=== PATIENT | male | born 1945 | race Native Hawaiian/Other Pacific Islander ===

== ENCOUNTER 2016-11-07 15:05 | Observation (INO) | payer MEDICARE, MEDICAID ==
--- NOTE | 2016-11-07 15:34 | C.PDOC ---
History Of Present Illness 71 y/o male, history of DM and HTN, sent in by PMD today for bilateral lower extremity swelling. Pt reports swelling has worsened over the last week. Also reports SOB on exertion. Denies chest pain, fever, chills, nausea, vomiting, diarrhea, or other associated symptoms. PMD: Dr. Glynn Time Seen by Provider: 11/07/16 15:23 Chief Complaint (Nursing): Shortness Of Breath History Per: Patient History/Exam Limitations: no limitations Onset/Duration Of Symptoms: Days Current Symptoms Are (Timing): Worse Exacerbating Factor(s): Exertion Associated Symptoms: Ankle/Leg Swelling. denies: Fever, Chills, Chest Pain, Bloody Cough, Productive Cough, Dizziness, Light-headedness, Anxiety Recent travel outside of the [place]: No Past Medical History Reviewed: Historical Data, Nursing Documentation, Vital Signs Vital Signs: Last Vital Signs Temp 97.9 F 11/07/16 15:16 Pulse 83 11/07/16 15:16 Resp 20 11/07/16 15:39 BP 144/86 11/07/16 15:16 Pulse Ox 100 11/07/16 16:58 - Medical History PMH: Asthma, HTN Family History: States: Unknown Family Hx - Social History Hx Alcohol Use: No Hx Substance Use: No - Immunization History Hx Tetanus Toxoid Vaccination: No Hx Influenza Vaccination: Yes Hx Pneumococcal Vaccination: Yes Review Of Systems Except As Marked, All Systems Reviewed And Found Negative. Constitutional: Negative for: Fever, Chills Cardiovascular: Positive for: Edema (bilateral lower extremities). Negative for : Chest Pain, Palpitations Respiratory: Positive for: SOB with Excertion. Negative for: Cough Gastrointestinal: Negative for: Nausea, Vomiting, Abdominal Pain Skin: Negative for: Rash Neurological: Negative for: Headache, Dizziness Physical Exam - Physical Exam Appears: Non-toxic, No Acute Distress Skin: Normal Color, Warm, Dry, No Rash Head: Atraumatic, Normacephalic Oral Mucosa: Moist Neck: Supple Chest: Symmetrical, Other (pacemaker L chest wall) Cardiovascular: Rhythm Regular Respiratory: Rales (scant, bilateral bases), No Rhonchi, No Stridor, No Wheezing Gastrointestinal/Abdominal: Soft, No Tenderness, No Guarding, No Rebound Extremity: Normal ROM, Pedal Edema (2+ pitting edema bilaterally extending up to the knees), No Calf Tenderness, Capillary Refill (< 2 sec.) Neurological/Psych: Oriented x3, Normal Speech, Normal Cognition ED Course And Treatment - Laboratory Results Result Diagrams: 11/07/16 15:51 11/07/16 15:51 O2 Sat by Pulse Oximetry: 100 (RA) Pulse Ox Interpretation: Normal Medical Decision Making Medical Decision Making: Plan: * EKG, CxR, bloodwork * Reassess Progress: EKG shows atrial sensed ventricular paced rhythm at 83bpm Cxray shows mild venous congestion with patchy bibasilar airspace opacities and small bilateral pleural effusions. Labs consistnet with chf. Lasix ordered. Trop x 1cnegative. Spoke to PMD Dr. Glynn and cardiology consult placed Disposition - Disposition Disposition Time: 17:09 Condition: FAIR - Clinical Impression Clinical Impression: New onset of congestive heart failure - Scribe Statement The provider has reviewed the documentation as recorded by the Dora Quintana Provider Attestation: All medical record entries made by the Giovanyibmaria eugenia were at my direction and personally dictated by me. I have reviewed the chart and agree that the record accurately reflects my personal performance of the history, physical exam, medical decision making, and the department course for this patient. I have also personally directed, reviewed, and agree with the discharge instructions and disposition.
[2016-11-07 16:05] LABS: BASO # 0.1 K/uL (0.0-0.2); BASO % 1.3 % (0.0-2.0); EOS # 0.1 K/uL (0.0-0.7); HEMATOCRIT 38.1 % (35.0-51.0); LYMPH % 14.3 % (20.0-40.0); MEAN CELL VOLUME 88.8 fL (80.0-94.0); MEAN CORPUSCULAR HEMOGLOBIN 28.9 pg (27.0-31.0); MEAN CORPUSCULAR HGB CONC 32.5 g/dL (33.0-37.0); MEAN PLATELET VOLUME 9.6 fL (7.2-11.7); MONO # 0.5 K/uL (0.0-0.8); MONO % 7.6 % (0.0-10.0); RED CELL DISTRIBUTION WIDTH 19.2 % (11.5-14.5); WHITE BLOOD COUNT 6.7 K/uL (4.8-10.8)
[2016-11-07 16:10] LABS: POTASSIUM 5.3 mmol/L (3.6-5.2)
[2016-11-07 16:11] LABS: ALB/GLOB RATIO 0.9 (1.0-2.1); BILIRUBIN,TOTAL 1.4 mg/dL (0.2-1.3); TOTAL PROTEIN 7.2 g/dL (6.3-8.3)
[2016-11-07 16:12] LABS: CALCIUM 8.6 mg/dl (8.6-10.4)
[2016-11-07 16:19] LABS: INR 1.2
[2016-11-07 16:24] LABS: TROPONIN I 0.073 ng/mL (0.00-0.120)
--- NOTE | 2016-11-07 16:24 | RAD ---
HISTORY: lower extremity edema COMPARISON: 05/21/2012 FINDINGS: LUNGS: Mild venous congestion with patchy bibasilar airspace opacities and small bilateral pleural effusions. PLEURA: As above. CARDIOVASCULAR: Cardiomegaly. Left-sided pacemaker. OSSEOUS STRUCTURES: No significant abnormalities. VISUALIZED UPPER ABDOMEN: Normal. OTHER FINDINGS: None. IMPRESSION: Mild venous congestion with patchy bibasilar airspace opacities and small bilateral pleural effusions.
[2016-11-07] MEDS: (Novolin R) Insulin Human Regular 100 units/ml vial SC SCH (21:46)
[2016-11-08] MEDS ORDERED: DiphenhydrAMINE 12.5 mg/5 ml LIQ UD (5 ml) PO STA (00:47)
[2016-11-08 08:01] LABS: POTASSIUM 4.6 mmol/L (3.6-5.2)
[2016-11-08 08:05] LABS: CALCIUM 8.7 mg/dl (8.6-10.4)
--- NOTE | 2016-11-08 08:15 | CP.PCM.CON ---
History of Present Illness - History of Present Illness History of Present Illness: patient seen examined. full consult to follow. will check echocardiogram Past Patient History - Infectious Disease Hx of Infectious Diseases: None - Past Medical History & Family History Past Medical History?: Yes - Past Social History Smoking Status: Former Smoker - CARDIAC Hx Hypertension: Yes - PULMONARY Hx Asthma: Yes - NEUROLOGICAL Hx Neurological Disorder: No - HEENT Hx HEENT Problems: No - RENAL Hx Chronic Kidney Disease: No - ENDOCRINE/METABOLIC Hx Diabetes Mellitus Type 2: Yes - HEMATOLOGICAL/ONCOLOGICAL Hx Blood Disorders: No - INTEGUMENTARY Hx Dermatological Problems: No - MUSCULOSKELETAL/RHEUMATOLOGICAL Hx Musculoskeletal Disorders: No Hx Falls: Yes - GASTROINTESTINAL Hx Gastrointestinal Disorders: No - GENITOURINARY/GYNECOLOGICAL Hx Genitourinary Disorders: No - PSYCHIATRIC Hx Psychophysiologic Disorder: No Hx Substance Use: No - SURGICAL HISTORY Hx Cardiac Catheterization: Yes Hx Femoral-Popliteal Bypass Graft: Yes - ANESTHESIA Hx Anesthesia: Yes Hx Anesthesia Reactions: No Meds Allergies/Adverse Reactions: Allergies Allergy/AdvReac Type Severity Reaction Status Date / Time angiotensin converting Allergy Uncoded 11/07/16 20:05 enzyme inhib - Medications Medications: Current Medications Furosemide (Lasix) 40 mg IVP DAILY [facility] Heparin Sodium (Porcine) (Heparin) 5,000 units SC Q12 [facility] Last Admin: 11/07/16 21:45 Dose: Not Given Insulin Human Regular (Novolin R) 1 unit SC ACHS [facility] PRN Reason: Protocol Last Admin: 11/07/16 21:46 Dose: Not Given Losartan Potassium (Cozaar) 50 mg PO DAILY [facility] Metoprolol Tartrate (Lopressor) 50 mg PO BID [facility] Last Admin: 11/07/16 22:04 Dose: 50 mg Results - Vital Signs Recent Vital Signs: Last Vital Signs Temp 97.7 F 11/08/16 04:15 Pulse 68 11/08/16 04:15 Resp 20 11/08/16 04:15 BP 135/72 11/08/16 04:15 Pulse Ox 99 11/07/16 23:40 - Labs Result Diagrams: 11/07/16 15:51 11/08/16 07:37 Labs: Laboratory Results - last 24 hr 11/07/16 11/08/16 11/08/16 21:24 06:20 07:37 Sodium 141 Potassium 4.6 Chloride 99 Carbon Dioxide 29 Anion Gap 18 BUN 40 H Creatinine 2.3 H Est GFR ( Amer) 34 Est GFR (Non-Af Amer) 28 POC Glucose (mg/dL) 232 H 170 H Random Glucose 135 H Calcium 8.7
--- NOTE | 2016-11-08 08:18 | CP.PCM.CON ---
History of Present Illness - History of Present Illness History of Present Illness: I was asked to see patient by Dr. Glynn. Patient is a 71 year old male with PMH HTN, hypercholesterolemia, CAD, PAD who presents with dyspnea. The patient is s/p AICD implant in a different state. He has developed progressive dyspnea and lower extremity edema. He denies chest pain or AICD firing. Review of Systems - Constitutional Constitutional: absent: As Per HPI, Anorexia, Chills, Daytime Sleepiness, Excessive Sweating, Fatigue, Fever, Frequent Falls, Headache, Increased Appetite , Lethargy, Malaise, Night Sweats, Snoring, Sleep Apnea, Weight Gain, Weight Loss, Weakness, Other - EENT Eyes: absent: As Per HPI, Blind Spots, Blurred Vision, Change in Vision, Decreased Night Vision, Diplopia, Discharge, Dry Eye, Exophthalmos, Floaters, Irritation, Itchy Eyes, Loss of Peripheral Vision, Pain, Photophobia, Requires Corrective Lenses, Sees Flashes, Spots in Vision, Tunnel Vision, Other Visual Disturbances, Loss of Vision, Other Ears: absent: As Per HPI, Decreased Hearing, Ear Discharge, Ear Pain, Tinnitus, Abnormal Hearing, Disequilibrium, Dizziness, Other Nose/Mouth/Throat: absent: As Per HPI, Epistaxis, Nasal Congestion, Nasal Discharge, Nasal Obstruction, Nasal Trauma, Nose Pain, Post Nasal Drip, Sinus Pain, Sinus Pressure, Bleeding Gums, Change in Voice, Dental Pain, Dry Mouth, Dysphagia, Halitosis, Hoarsness, Lip Swelling, Mouth Lesions, Mouth Pain, Odynophagia, Sore Throat, Throat Swelling, Tongue Swelling, Facial Pain, Neck Pain, Neck Mass, Other - Cardiovascular Cardiovascular: Dyspnea, Leg Edema - Respiratory Respiratory: absent: As Per HPI, Cough, Dyspnea, Hemoptysis, Dyspnea on Exertion , Wheezing, Snoring, Stridor, Pain on Inspiration, Chest Congestion, Excessive Mucous Production, Change in Mucous Color, Pain with Coughing, Other - Musculoskeletal Musculoskeletal: absent: As Per HPI, Abnormal Gait, Arthralgias, Atrophy, Back Pain, Deformity, Joint Swelling, Limited Range of Motion, Loss of Height, Muscle Cramps, Muscle Weakness, Myalgias, Neck Pain, Numbness, Radiating Pain into Limb, Stiffness, Tingling, Other - Integumentary Integumentary: absent: As Per HPI, Acne, Alopecia, Bleeding Lesions, Change in Hair, Change in Nails, Change in Pigmentation, Changing Lesions, Dry Skin, Erythema, Furuncle, Hirsutism, Lesions, New Lesions, Non-Healing Lesions, Photosensitivity, Pruritus, Rash, Skin Pain, Skin Ulcer, Sores, Striae, Swelling , Unusual Bruising, Wounds, Jaundice, Other - Neurological Neurological: absent: As Per HPI, Abnormal Gait, Abnormal Hearing, Abnormal Movements, Abnormal Speech, Behavioral Changes, Burning Sensations, Confusion, Convulsions, Disequilibrium, Dizziness, Numbness, Focal Weakness, Frequent Falls , Headaches, Lack of Coordination, Loss of Vision, Memory Loss, Paresthesias, Radicular Pain, Restless Legs, Sensory Deficit, Syncope, Tingling, Tremor, Vertigo, Weakness, Other Visual Disturbances, Other - Psychiatric Psychiatric: absent: As Per HPI, Abnormal Sleep Pattern, Anhedonia, Anxiety, Auditory Hallucinations, Behavioral Changes, Change in Appetite, Change in Libido, Confusion, Depression, Difficulty Concentrating, Hallucinations, Homicidal Ideation, Hopelessness, Irritability, Memory Loss, Mood Swings, Panic Attacks, Paranoia, Suicidal Ideation, Visual Hallucinations, Tactile Hallucinations, Other - Endocrine Endocrine: absent: As Per HPI, Change in Body Appearance, Change in Libido, Cold Intolorance, Deepening of Voice, Excessive Sweating, Fatigue, Flushing, Heat Intolorance, Increase in Ring/Shoe/Hat Size, Palpitations, Polydipsia, Polyphagia, Polyuria, Other - Hematologic/Lymphatic Hematologic: absent: As Per HPI, Easy Bleeding, Easy Bruising, Lymphadenopathy, Other Past Patient History - Infectious Disease Hx of Infectious Diseases: None - Past Medical History & Family History Past Medical History?: Yes - Past Social History Smoking Status: Former Smoker - CARDIAC Hx Hypertension: Yes - PULMONARY Hx Asthma: Yes - NEUROLOGICAL Hx Neurological Disorder: No - HEENT Hx HEENT Problems: No - RENAL Hx Chronic Kidney Disease: No - ENDOCRINE/METABOLIC Hx Diabetes Mellitus Type 2: Yes - HEMATOLOGICAL/ONCOLOGICAL Hx Blood Disorders: No - INTEGUMENTARY Hx Dermatological Problems: No - MUSCULOSKELETAL/RHEUMATOLOGICAL Hx Musculoskeletal Disorders: No Hx Falls: Yes - GASTROINTESTINAL Hx Gastrointestinal Disorders: No - GENITOURINARY/GYNECOLOGICAL Hx Genitourinary Disorders: No - PSYCHIATRIC Hx Psychophysiologic Disorder: No Hx Substance Use: No - SURGICAL HISTORY Hx Cardiac Catheterization: Yes Hx Femoral-Popliteal Bypass Graft: Yes - ANESTHESIA Hx Anesthesia: Yes Hx Anesthesia Reactions: No Meds Home Medications: Home Medication List Medication Instructions Recorded Confirmed Type Albuterol/Ipratropium [Duoneb 3 3 ml INH RQID 11/09/16 Rx mg/0.5 mg (3 ml) UD] Aspirin [Aspirin Chewable] 324 mg PO STAT 11/09/16 Rx Clopidogrel [Plavix] 75 mg PO DAILY tab 11/09/16 Rx Furosemide [Lasix] 40 mg IVP DAILY vial 11/09/16 Rx Insulin Human Isophane (NPH) 8 unit SC DAILY@0800 unit 11/09/16 Rx [Novolin N] Losartan [Cozaar] 50 mg PO DAILY tab 11/09/16 Rx Metoprolol Tartrate [Lopressor] 50 mg PO BID tab 11/09/16 Rx Rosuvastatin Calcium [Crestor] 10 mg PO HS tab 11/09/16 Rx Tamsulosin [Flomax] 0.4 mg PO DAILY cap 11/09/16 Rx Allergies/Adverse Reactions: Allergies Allergy/AdvReac Type Severity Reaction Status Date / Time angiotensin converting Allergy Uncoded 11/07/16 20:05 enzyme inhib - Medications Medications: Current Medications Furosemide (Lasix) [address] [facility] Heparin Sodium (Porcine) (Heparin) 5,[address] [facility] Last Admin: 11/07/16 21:45 Dose: Not Given Insulin Human Regular (Novolin R) [address] [facility] PRN Reason: Protocol Last Admin: 11/07/16 21:46 Dose: Not Given Losartan Potassium (Cozaar) [address] [facility] Metoprolol Tartrate (Lopressor) [address] [facility] Last Admin: 11/07/16 22:04 Dose: 50 mg Physical Exam - Constitutional Appears: Non-toxic - Head Exam Head Exam: NORMAL INSPECTION - Eye Exam Eye Exam: Normal appearance - ENT Exam ENT Exam: Mucous Membranes Moist - Neck Exam Neck exam: Positive for: Full Rom - Respiratory Exam Respiratory Exam: Decreased Breath Sounds - Cardiovascular Exam Cardiovascular Exam: REGULAR RHYTHM - GI/Abdominal Exam GI & Abdominal Exam: Normal Bowel Sounds - Rectal Exam Rectal Exam: Deferred - Extremities Exam Extremities exam: Positive for: pedal edema - Back Exam Back exam: NORMAL INSPECTION - Neurological Exam Neurological exam: Alert, Oriented x3 - Psychiatric Exam Psychiatric exam: Normal Affect - Skin Skin Exam: Normal Color Results - Vital Signs Recent Vital Signs: Last Vital Signs Temp 97.7 F 11/08/16 04:15 Pulse 68 11/08/16 04:15 Resp 20 11/08/16 04:15 BP 135/72 11/08/16 04:15 Pulse Ox 99 11/07/16 23:40 - Labs Result Diagrams: 11/07/16 15:51 11/09/16 07:06 Labs: Laboratory Results - last 24 hr 11/07/16 11/08/16 11/08/16 21:24 06:20 07:37 Sodium 141 Potassium 4.6 Chloride 99 Carbon Dioxide 29 Anion Gap 18 BUN 40 H Creatinine 2.3 H Est GFR ( Amer) 34 Est GFR (Non-Af Amer) 28 POC Glucose (mg/dL) 232 H 170 H Random Glucose 135 H Calcium 8.7 - EKG Data EKG Interpreted by: Myself Assessment & Plan (1) New onset of congestive heart failure Assessment and Plan: patient has systolic dysfunction, and therefore has udnergone AICD implant. He appears to have acute on chronic systolic dysfunction. I recommend continued medica therapy. check echocardiogram, Lasix BID. Status: Acute (2) HTN (hypertension) Assessment and Plan: blood pressure control Status: Acute (3) PAD (peripheral artery disease) Assessment and Plan: antiplatelet therapy. Status: Acute
[2016-11-08] MEDS: (Novolin R) Insulin Human Regular 100 units/ml vial SC SCH ×4 (08:24→21:39)
--- NOTE | 2016-11-08 08:40 | CP.PCM.HP ---
History of Present Illness - History of Present Illness History of Present Illness: 71 y/o male w/ CAD, PAD, CKD, DJD. Patient has increasing SOB w/ minimal effort since wkend. Patient seen in clinic and was noted to be in heart failure. Present on Admission - Present on Admission Any Indicators Present on Admission: Yes History of DVT/PE: No History of Uncontrolled Diabetes: No Urinary Catheter: No Decubitus Ulcer Present: No Review of Systems - Review of Systems Systems not reviewed;Unavailable: Acuity of Condition - Constitutional Constitutional: Fatigue, Weakness. absent: Fever, Headache - EENT Eyes: absent: Change in Vision, Loss of Peripheral Vision, Sees Flashes Ears: Decreased Hearing, Disequilibrium. absent: Ear Discharge, Ear Pain, Tinnitus Nose/Mouth/Throat: absent: Nasal Discharge, Dysphagia, Hoarsness, Facial Pain - Cardiovascular Cardiovascular: Edema, Leg Edema, Orthopnea, Palpitations, Pedal Edema. absent : Chest Pain, Chest Pain at Rest, Diaphoresis, Irregular Heart Rhythm, Leg Ulcers, Syncope - Respiratory Respiratory: Cough, Dyspnea on Exertion, Chest Congestion. absent: Excessive Mucous Production, Change in Mucous Color, Pain with Coughing - Gastrointestinal Gastrointestinal: Early Satiety. absent: Bloating, Dyspepsia, Dysphagia, Heartburn, Hematemesis, Nausea, Vomiting - Genitourinary Genitourinary: Difficulty Urinating. absent: Dysuria, Urinary Incontinence, Urinary Urgency, Voiding Freq/Small Amts - Musculoskeletal Musculoskeletal: Abnormal Gait, Numbness. absent: Back Pain, Loss of Height, Neck Pain - Neurological Neurological: Abnormal Hearing. absent: Confusion, Focal Weakness, Headaches, Lack of Coordination, Memory Loss - Hematologic/Lymphatic Hematologic: absent: Easy Bleeding, Easy Bruising, Lymphadenopathy Past Patient History - Infectious Disease Hx of Infectious Diseases: None - Past Medical History & Family History Past Medical History?: Yes - Past Social History Smoking Status: Former Smoker - CARDIAC Hx Hypertension: Yes - PULMONARY Hx Asthma: Yes - NEUROLOGICAL Hx Neurological Disorder: No - HEENT Hx HEENT Problems: No - RENAL Hx Chronic Kidney Disease: No - ENDOCRINE/METABOLIC Hx Diabetes Mellitus Type 2: Yes - HEMATOLOGICAL/ONCOLOGICAL Hx Blood Disorders: No - INTEGUMENTARY Hx Dermatological Problems: No - MUSCULOSKELETAL/RHEUMATOLOGICAL Hx Musculoskeletal Disorders: No Hx Falls: Yes - GASTROINTESTINAL Hx Gastrointestinal Disorders: No - GENITOURINARY/GYNECOLOGICAL Hx Genitourinary Disorders: No - PSYCHIATRIC Hx Psychophysiologic Disorder: No Hx Substance Use: No - SURGICAL HISTORY Hx Cardiac Catheterization: Yes Hx Femoral-Popliteal Bypass Graft: Yes - ANESTHESIA Hx Anesthesia: Yes Hx Anesthesia Reactions: No Meds Allergies/Adverse Reactions: Allergies Allergy/AdvReac Type Severity Reaction Status Date / Time angiotensin converting Allergy Uncoded 11/07/16 20:05 enzyme inhib Physical Exam - Constitutional Appears: No Acute Distress - Eye Exam Eye Exam: Normal appearance - ENT Exam ENT Exam: Mucous Membranes Moist - Neck Exam Neck exam: Negative for: Full Rom, Lymphadenopathy, Normal Inspection, Thyromegaly - Respiratory Exam Respiratory Exam: Decreased Breath Sounds, Rales, Rhonchi. absent: Wheezes - Cardiovascular Exam Cardiovascular Exam: REGULAR RHYTHM, JVD, +S1, +S2, Systolic Murmur. absent: Gallop - GI/Abdominal Exam GI & Abdominal Exam: Soft. absent: Guarding, Tenderness - Extremities Exam Extremities exam: Positive for: full ROM, normal capillary refill, pedal edema. Negative for: calf tenderness, joint swelling - Neurological Exam Neurological exam: Abnormal Gait, CN II-XII Intact, Oriented x3 Results - Vital Signs Recent Vital Signs: Last Vital Signs Temp 97.7 F 11/08/16 04:15 Pulse 68 11/08/16 04:15 Resp 20 11/08/16 04:15 BP 135/72 11/08/16 04:15 Pulse Ox 99 11/07/16 23:40 - Labs Result Diagrams: 11/07/16 15:51 11/08/16 07:37 Labs: Laboratory Results - last 24 hr 11/07/16 11/08/16 11/08/16 21:24 06:20 07:37 Sodium 141 Potassium 4.6 Chloride 99 Carbon Dioxide 29 Anion Gap 18 BUN 40 H Creatinine 2.3 H Est GFR ( Amer) 34 Est GFR (Non-Af Amer) 28 POC Glucose (mg/dL) 232 H 170 H Random Glucose 135 H Calcium 8.7 - EKG Data EKG Interpreted by: Myself (Pacemaker rhythm) Assessment & Plan - Assessment and Plan (Free Text) Assessment: Acute CHF; NIDDM w/ CKD HTN, CAD, PAD, DJD, BPH Lasix BID and Duaneb Tx Conr OPD Tx For 2-d Echo
[2016-11-08] MEDS ORDERED: (Novolin N) Insulin Human Isophane (NPH) 100 u/ml 10 ml vial SC SCH (10:00)
[2016-11-08] MEDS: Albuterol-Ipratrop 3 mg / 0.5 (3 ml) UD INH SCH ×4 (10:59→20:22)
[2016-11-09 05:13] VITALS: O2SAT 100
[2016-11-09] MEDS: (Novolin R) Insulin Human Regular 100 units/ml vial SC SCH (07:11)
[2016-11-09 07:33] LABS: POTASSIUM 4.1 mmol/L (3.6-5.2)
[2016-11-09] MEDS: Albuterol-Ipratrop 3 mg / 0.5 (3 ml) UD INH SCH (07:34)
[2016-11-09 07:36] LABS: ALB/GLOB RATIO 0.9 (1.0-2.1); BILIRUBIN,TOTAL 1.2 mg/dL (0.2-1.3); TOTAL PROTEIN 6.5 g/dL (6.3-8.3)
[2016-11-09 07:37] LABS: CALCIUM 8.4 mg/dl (8.6-10.4)
[2016-11-09 08:07] VITALS: PULSE 72
[2016-11-09 09:12] VITALS: BP 138/79; RESP 18; TEMP 97.6
--- NOTE | 2016-11-09 09:19 | CP.PCM.PN ---
Subjective - Date & Time of Evaluation Date of Evaluation: 11/09/16 Time of Evaluation: 08:49 - Subjective Subjective: Pt no [employer], no SOB, no palpitation Want to go home; feels breathing alot better Objective - Vital Signs/Intake and Output Vital Signs (last 24 hours): Temp Pulse Resp BP Pulse Ox 97.6 F 72 18 138/79 100 11/09/16 07:20 11/09/16 08:04 11/09/16 07:20 11/09/16 09:10 11/09/16 07:20 Intake and Output: 11/09/16 11/09/16 06:59 18:59 Intake Total 690 Output Total 800 Balance -110 - Medications Medications: Current Medications Albuterol/Ipratropium (Duoneb 3 Mg/0.5 Mg (3 Ml) Ud) 3 ml INH RQID [facility] Last Admin: 11/09/16 07:34 Dose: 3 ml Clopidogrel Bisulfate (Plavix) 75 mg PO DAILY [facility] Last Admin: 11/09/16 09:11 Dose: 75 mg Furosemide (Lasix) 40 mg IVP Q12 [facility] Last Admin: 11/09/16 09:10 Dose: 40 mg Heparin Sodium (Porcine) (Heparin) 5,000 units SC Q12 [facility] Last Admin: 11/09/16 09:10 Dose: 5,000 units Insulin Human NPH (Novolin N) 8 unit SC DAILY@0800 [facility] Insulin Human Regular (Novolin R) 0 unit SC ACHS [facility] PRN Reason: Protocol Last Admin: 11/09/16 07:11 Dose: Not Given Losartan Potassium (Cozaar) 50 mg PO DAILY [facility] Last Admin: 11/09/16 09:11 Dose: 50 mg Metoprolol Tartrate (Lopressor) 50 mg PO BID [facility] Last Admin: 11/09/16 09:11 Dose: 50 mg Rosuvastatin Calcium (Crestor) 10 mg PO HS [facility] Last Admin: 11/08/16 21:58 Dose: 10 mg Tamsulosin HCl (Flomax) 0.4 mg PO DAILY [facility] Last Admin: 11/09/16 09:11 Dose: 0.4 mg - Labs Labs: 11/09/16 07:06 PT 13.2 SECONDS (9.7-12.2) H 11/07/16 15:51 INR 1.2 11/07/16 15:51 APTT 38 SECONDS (21-34) H 11/07/16 15:51 - Constitutional Appears: No Acute Distress - Eye Exam Eye Exam: Normal appearance - ENT Exam ENT Exam: Mucous Membranes Moist - Neck Exam Neck Exam: Full ROM. absent: Lymphadenopathy - Respiratory Exam Respiratory Exam: Clear to Ausculation Bilateral. absent: Rales, Rhonchi, Wheezes - Cardiovascular Exam Cardiovascular Exam: REGULAR RHYTHM, +S1, +S2, Murmur. absent: Gallop, JVD - GI/Abdominal Exam GI & Abdominal Exam: Soft. absent: Tenderness, Mass - Extremities Exam Extremities Exam: Full ROM, Normal Capillary Refill, Pedal Edema. absent: Calf Tenderness, Joint Swelling Assessment and Plan - Assessment and Plan (Free Text) Assessment: decompensated CHF - improve CAD; NIDDM, PAD, CKD, DJD For discharge Cont OPD meds
--- NOTE | 2016-11-09 13:18 | PCM.HF ---
Heart Failure Core Measure - Heart Failure Left Ventricular Function to be assessed after discharge: Yes KAYCE Inhibitor Prescribed: No Contraindication/Reason for not providing: ALLERGY TO KAYCE Beta-Sasha Prescribed: None Contraindication/Reason for not providing: ON LOPRESSOR Angiotensin II Receptor Sasha Prescribed: Yes AnticoagulationTherapy for Atrial Fibrillation/Atrialflutter: No Contraindication/Reason for not providing: NO AFIB Aldosterone Antagonist Prescribed: No Contraindication/Reason for not providing: RENAL DISEASE Hydralazine Nitrate Prescribed: No Contraindication/Reason for not providing: RENAL DISEASE Implantable Cardioverter Defibrillator Therapy: No Contraindication/Reason for not providing: NO H/O Cardiac Resynchronization Therapy Prescribed: No Contraindication/Reason for not providing: NO H/O - Follow up Will be discharged to: Home (ECHO DONE 11/08; RESULTS PENDING AND CARDIO WILL F/ U WITH RESULTS.) Follow Up Date (must be within 7 days from discharge): 11/13/16 Follow Up Time: 09:00
--- NOTE | 2016-11-09 18:26 | CP.PCM.PN ---
Subjective - Date & Time of Evaluation Date of Evaluation: 11/09/16 Time of Evaluation: 10:00 - Subjective Subjective: no new complaints. Patient denies chest pain or dyspnea Objective - Vital Signs/Intake and Output Vital Signs (last 24 hours): Temp Pulse Resp BP Pulse Ox 97.6 F 72 18 138/79 100 11/09/16 07:20 11/09/16 08:04 11/09/16 07:20 11/09/16 09:10 11/09/16 07:20 Intake and Output: 11/09/16 11/09/16 06:59 18:59 Intake Total 690 250 Output Total 800 Balance -110 250 - Labs Labs: 11/09/16 07:06 PT 13.2 SECONDS (9.7-12.2) H 11/07/16 15:51 INR 1.2 11/07/16 15:51 APTT 38 SECONDS (21-34) H 11/07/16 15:51 - Constitutional Appears: Non-toxic - Head Exam Head Exam: NORMAL INSPECTION - Eye Exam Eye Exam: Normal appearance - ENT Exam ENT Exam: Mucous Membranes Moist - Neck Exam Neck Exam: Full ROM - Respiratory Exam Respiratory Exam: Decreased Breath Sounds - Cardiovascular Exam Cardiovascular Exam: REGULAR RHYTHM - GI/Abdominal Exam GI & Abdominal Exam: Normal Bowel Sounds - Rectal Exam Rectal Exam: Deferred - Extremities Exam Extremities Exam: Pedal Edema - Back Exam Back Exam: NORMAL INSPECTION - Neurological Exam Neurological Exam: Alert - Psychiatric Exam Psychiatric exam: Normal Affect - Skin Skin Exam: Normal Color Assessment and Plan (1) HTN (hypertension) Assessment & Plan: blood pressure control Status: Acute (2) New onset of congestive heart failure Assessment & Plan: diuresis with lasix Status: Acute (3) PAD (peripheral artery disease) Assessment & Plan: antiplatelet therapy Status: Acute
[2016-11-10] MEDS ORDERED: (Novolin N) Insulin Human Isophane (NPH) 100 u/ml 10 ml vial SC SCH (08:00)
--- NOTE | 2016-11-10 12:51 | CARD ---
APPROVED REPORT EKG Measurement Heart [id number] <Conclusion> Atrial-sensed ventricular-paced rhythm Abnormal ECG
--- NOTE | 2016-11-24 04:02 | CARD ---
APPROVED REPORT EXAM: Two-dimensional and M-mode echocardiogram with Doppler and color Doppler. Other Information Quality : GoodRhythm : INDICATION Dyspnea Cardiac Disease: CAD 2D DIMENSIONS LVEF (%)25.0 (>50%) M-Mode DIMENSIONS RVDd2.73 (2.1-3.2cm)Left Atrium (MM)4.53 (2.5-4.0cm) IVSd0.81 (0.7-1.1cm)Aortic Root3.50 (2.2-3.7cm) LVDd5.27 (4.0-5.6cm)Aortic Cusp Exc.1.90 (1.5-2.0cm) PWd0.92 (0.7-1.1cm)LVDs3.36 (2.0-3.8cm) LVEF (%)25 (>50%) Aortic Valve AI P 1/2 [id number] Mitral Valve MV E Pmwmqttu96.6cm/sMV A Prweyvno83.9cm/sE/A ratio3.3 TDI E/Lateral E'0.0E/Medial E'0.0 Tricuspid Valve TR Peak [id number]/sTR Peak Gr.[id number] LEFT VENTRICLE The left ventricle is normal size. There is normal left ventricular wall thickness. Left ventricle systolic function is severely impaired. The Ejection Fraction is 20-25%. There is global hypokinesis of the left ventricle. The left ventricular diastolic function is normal. RIGHT VENTRICLE The right ventricle is normal size. There is normal right ventricular wall thickness. Systolic function is severely reduced. There is a pacemaker lead in the right ventricle. ATRIA The left atrium is mildly dilated. The right atrium size is normal. The interatrial septum is intact with no evidence for an atrial septal defect. AORTIC VALVE The aortic valve is normal in structure. No aortic regurgitation is present. There is no aortic valvular stenosis. There is no aortic valvular vegetation. MITRAL VALVE The mitral valve is normal in structure. There is no evidence of mitral valve prolapse. There is no mitral valve stenosis. Mitral regurgitation is mild. TRICUSPID VALVE The tricuspid valve is normal in structure. There is mild tricuspid regurgitation. Right ventricular systolic pressure is estimated at 40-50 mmHg. There is mild-moderate pulmonary hypertension. PULMONIC VALVE The pulmonic valve is not well visualized. There is no pulmonic valvular regurgitation. GREAT VESSELS The aortic root is normal in size. PERICARDIAL EFFUSION There is no significant pericardial effusion. <Conclusion> Left ventricle systolic function is severely impaired. The Ejection Fraction is 20-25%. There is a pacemaker lead in the right ventricle. No aortic regurgitation is present. Mitral regurgitation is mild. There is mild tricuspid regurgitation. There is mild-moderate pulmonary hypertension. There is no pulmonic valvular regurgitation.
== END 2016-11-09 11:27 | disposition home or self-care (01) ==
LOC: C.ER 15:05 → C.9E 16:58 → C.6T 19:20
PROVIDERS: ADMIT Internal Medicine; ATTEND Internal Medicine
DX: I13.0 Hypertensive heart and chronic kidney disease with heart failure and stage 1 through stage 4 chronic kidney disease, or unspecified chronic kidney disease (principal); I50.9 Heart failure, unspecified; I25.10 Atherosclerotic heart disease of native coronary artery without angina pectoris; J45.909 Unspecified asthma, uncomplicated; N18.9 Chronic kidney disease, unspecified; N40.0 Benign prostatic hyperplasia without lower urinary tract symptoms; Z79.84 Long term (current) use of oral hypoglycemic drugs; Z87.891 Personal history of nicotine dependence; E11.9 Type 2 diabetes mellitus without complications; Z79.4 Long term (current) use of insulin
CPT/HCPCS: 36415; 71010; 80048; 80053; 82550; 82553; 82948; 83880; 84484; 85025; 85610; 85730; 93005; 93306; 94640; 96374; 99285; G0378; J1644; J1940